=== PATIENT | male | born 1955 | race Caucasian/White ===

== ENCOUNTER 2019-09-01 12:43 | Emergency (ER) | payer OTHER ==
[2019-09-01 12:55] VITALS: BP 159/100
--- NOTE | 2019-09-01 13:58 | UC ---
Respiratory Complaint HPI - HPI Summary HPI Summary: 1 WEEK OF URI SYMPTOMS INCLUDING COUGH, CONGESTION AND OVERALL MALAISE. NO FEVER, NAUSEA/VOMITING. - History of Current Complaint Chief Complaint: UCRespiratory Stated Complaint: CHEST CONGESTION COUGH SINUS ISSUE Time Seen by Provider: 09/01/19 13:02 Hx Obtained From: Patient Onset/Duration: Gradual Onset, Lasting Days, Still Present Timing: Constant Severity Initially: Moderate Severity Currently: Moderate Pain Intensity: 3 Pain Scale Used: 0-10 Numeric Character: Cough: Productive Aggravating Factors: Nothing Alleviating Factors: Nothing Associated Signs And Symptoms: Positive: URI, Nasal Congestion. Negative: Dyspnea, Fever, Wheezing - Allergies/Home Medications Allergies/Adverse Reactions: Allergies Allergy/AdvReac Type Severity Reaction Status Date / Time No Known Allergies Allergy Verified 09/01/19 12:55 Home Medications: Home Medications ALPRAZolam [Alprazolam] 1 tab PO DAILY 09/01/19 [History Confirmed 09/01/19] Fluticasone DISKUS 100 MCG(NF) 1 puff INH 09/01/19 [History] Lisinopril TAB* [Prinivil TAB 5 MG*] 1 tab PO DAILY 09/01/19 [History Confirmed 09/01/19] Simvastatin [Zocor 5 MG-] 1 tab PO DAILY 09/01/19 [History Confirmed 09/01/19] PMH/Surg Hx/FS Hx/Imm Hx Previously Healthy: Yes - Surgical History Surgical History: Yes Surgery Procedure, Year, and Place: ORBITAL FX - Family History Known Family History: Positive: Non-Contributory - Social History Alcohol Use: Occasionally Substance Use Type: None Smoking Status (MU): Light Every Day Tobacco Smoker Amount Used/How Often: only social Have You Smoked in the Last Year: Yes Review of Systems All Other Systems Reviewed And Are Negative: Yes Constitutional: Positive: Fatigue ENT: Positive: Nasal Discharge Respiratory: Positive: Cough Cardiovascular: Positive: Negative Gastrointestinal: Positive: Negative Physical Exam Triage Information Reviewed: Yes Appearance: Well-Appearing, No Pain Distress, Well-Nourished Vital Signs: Initial Vital Signs Temp 98.8 F 09/01/19 12:52 Pulse 58 09/01/19 12:52 Resp 16 09/01/19 12:52 BP 159/100 09/01/19 12:52 Pulse Ox 100 09/01/19 12:52 Vital Signs Reviewed: Yes Eyes: Positive: Conjunctiva Clear ENT: Positive: Hearing grossly normal, Pharynx normal, TMs normal Neck: Positive: Supple, Nontender, No Lymphadenopathy Respiratory Exam: Normal Cardiovascular Exam: Normal Abdomen Description: Positive: Soft Musculoskeletal: Positive: No Edema Neurological: Positive: Alert Psychological: Positive: Age Appropriate Behavior Skin: Negative: Rashes Respiratory Course/Dx - Course Course Of Treatment: DISCUSSED WITH THE PATIENT LIKELY VIRAL ETIOLOGY OF SYMPTOMS HOWEVER GIVEN HE HAS BEEN SICK FOR OVER A WEEK AND DOES NOT FEEL HE IS IMPROVING WILL GO AHEAD AND COVER WITH AZITHROMYCIN HE STATES THIS HAS WORKED WELL FOR HIM IN THE PAST. ENCOURAGED REST, HYDRATION. IBUPROFEN NEEDED FOR DISCOMFORT. SEEK REEVALUATION WITH HIS PCP IF HE IS NOT IMPROVING EXPECTED. - Differential Dx/Diagnosis Provider Diagnosis: Acute bronchitis Discharge ED - Sign-Out/Discharge Documenting (check all that apply): Patient Departure All imaging exams completed and their final reports reviewed: No Studies - Discharge Plan Condition: Stable Disposition: HOME Prescriptions: Azithromyxin ROSE (NF) [Z-Rose (Zithromax) 250 mg tabs #6] 2 tab PO .TODAY, THEN 1 DAILY #6 tab Patient Education Materials: Acute Bronchitis (ED) Referrals: Teresa Goddard MD [Primary Care Provider] - If Needed Additional Instructions: YOUR SYMPTOMS MAY BE VIRALLY MEDIATED BUT GIVEN THE LENGTH OF TIME YOU HAVE BEEN ILL WE WILL COVER YOU WITH ANTIBIOTICS. IF YOU START THE MEDICINE BE SURE TO TAKE IT FOR THE FULL COURSE. REST, HYDRATE, OTC MEDS NEEDED. SEEK FOLLOW- UP WITH YOUR PCP IF YOU ARE NOT IMPROVING OVER THE NEXT 1-2 WEEKS. - Billing Disposition and Condition Condition: STABLE Disposition: Home
== END 2019-09-01 13:47 | disposition home or self-care (01) ==
LOC: UCEAST 12:43
DX: J20.9 Acute bronchitis, unspecified (principal); J06.9 Acute upper respiratory infection, unspecified; R09.81 Nasal congestion; F17.290 Nicotine dependence, other tobacco product, uncomplicated
CPT/HCPCS: 99212; G0463